=== PATIENT | female | born 1980 | race Caucasian/White ===

== ENCOUNTER 2018-02-21 06:25 | Day surgery (SDC) | payer OTHER ==
[~2018-02-21] VITALS: Ht 167.6 cm; Wt 63.5 kg
[~2018-02-21 06:25] MED LIST: CEPHALEXIN500 MG PO; LIALDA1.2 GM PO; OB COMPLETE WI1 EACH PO
--- NOTE | 2018-02-21 18:51 | OR ---
[facility] [address], [place] [address] Signed DATE OF OPERATION: 02/21/2018 SURGEON: Krunal Bond MD PREOPERATIVE DIAGNOSES: 1. Known history of ulcerative colitis since teens. 2. Flare of colitis (clinical) September 2017, currently asymptomatic. POSTOPERATIVE DIAGNOSIS: Normal-appearing colon and ilium. PROCEDURE: Total colonoscopy to cecum and ilium with biopsy of ileum and colon. ANESTHESIA: Intravenous sedation, fentanyl 150 mcg and Versed 7 mg. INDICATION: This 38-year-old white woman has no ongoing primary care provider, but is known to me from the past having been diagnosed with ulcerative colitis a number of years ago, in her late teens. She had seen a tube drawer elsewhere as well. She has last undergone colonoscopy in 2012. Her original colonoscopy in 2001. She had been colonoscoped in [place] in 2009. She was seen on an urgent walk-in basis in September of this year for a clinical flare of ulcerative colitis, and was treated with mesalamine, preferring to decline prednisone use. It appears she has a "flare" of colitis in September of every year, possibly related to stress related to certain activities she is involved in at that time ([facility], roundup events at [facility]). She is currently taking no medication and is symptom-free. She is here for colonoscopy to assess disease activity, mindful of her lack of symptoms currently. She understands the risks of bleeding, infection, and perforation related to colonoscopy and wished to proceed. FINDINGS: The prep was excellent. Complete colonoscopy was undertaken of the cecum. The ileum was intubated as well. There was no evidence of ileitis nor sign of colitis or proctitis. Biopsies were taken throughout the colon and the ileum to assess for occult disease. Electronically Signed By: KRUNAL BOND MD 02/21/18 9731 PATIENT NAME: BEN LEE OPERATIVE REPORT DATE OF : 84 REPORT #: [id number] PHYSICIAN: KRUNAL BOND MD PCP: NO PRIMARY CARE PHYSICIAN REPORT IS CONFIDENTIAL AND NOT TO BE RELEASED WITHOUT AUTHORIZATION [facility] [address], [place] [address] Signed DESCRIPTION OF PROCEDURE: The patient was brought to the endoscopy suite and placed in lateral decubitus position and given intravenous sedation to the point of slurred speech and nystagmus with full cardiopulmonary monitoring. Digital rectal examination was normal. An Olympus video colonoscope was passed in the rectum and manipulated throughout the colon ultimately intubating the cecum. The ileocecal valve and appendiceal orifice were normal. With minimal manipulation, the ileum was intubated showing normal ileal mucosa. No sign of stricture or ulcerations. Biopsies were taken nevertheless. Scope was withdrawn to the cecum where biopsies taken of normal-appearing mucosa. Careful withdrawal of scope showed no sign of abnormality throughout the remaining colon. Biopsies were taken of the cecum, transverse colon, sigmoid, and rectum. Retroflexed view was normal as well. The scope was removed and the patient taken to recovery room in good condition. CONCLUDING DIAGNOSIS: Grossly normal colon, rectum and ileum. PLAN: As she is symptom-free at this time, no specific intervention will be made at this time. She has declined ongoing maintenance medications for ulcerative colitis in the past. She will return to see us in approximately 4 weeks and will review her pathology reports and her clinical options for ongoing management. MD BRITANY Lobo/MODL /[id number] Copies: ~ Electronically Signed By: KRUNAL BOND MD 02/21/18 1851 PATIENT NAME: BEN LEE OPERATIVE REPORT DATE OF : 84 REPORT #: [id number] PHYSICIAN: KRUNAL OBND MD PCP: NO PRIMARY CARE PHYSICIAN REPORT IS CONFIDENTIAL AND NOT TO BE RELEASED WITHOUT AUTHORIZATION
== END 2018-02-21 08:55 | disposition home or self-care (01) ==
LOC: OPS 06:25 → DS 06:25 → OPS 08:55 → DS 16:51 → OPS 17:01
PROC: 0DBH8ZX Excision of Cecum, Via Natural or Artificial Opening Endoscopic, Diagnostic (ICD-10-PCS; principal; 2018-02-21)
PROC: 0DBL8ZX Excision of Transverse Colon, Via Natural or Artificial Opening Endoscopic, Diagnostic (ICD-10-PCS; 2018-02-21)
PROC: 0DBB8ZX Excision of Ileum, Via Natural or Artificial Opening Endoscopic, Diagnostic (ICD-10-PCS; 2018-02-21)
DX: Z12.11 Encounter for screening for malignant neoplasm of colon (principal); Z98.890 Other specified postprocedural states; Z87.19 Personal history of other diseases of the digestive system
CPT/HCPCS: 99153; G0500; J2250; J3010; J7120